=== PATIENT | female | born 1990 | race Caucasian/White ===

== ENCOUNTER 2020-06-27 13:14 | Emergency (ER) | payer BC, SELFPAY ==
[2020-06-27 13:16] VITALS: BP 125/87; PULSE 91; RESP 17; TEMP 36.7; O2SAT 100
--- NOTE | 2020-06-27 13:33 | ED.UPPEXIN ---
HPI - Extremity Injury (Upper) General Chief Complaint: Extremity Injury, Upper Stated Complaint: r back pain Time Seen by Provider: 06/27/20 13:33 History of Present Illness HPI narrative: Pain in upper back medial to right scapula. Started this afternoon when she reached accross her desk to pick something up. Radiates to the right posterior neck. Worse with arm and head movement. Related Data Allergies Allergy/AdvReac Type Severity Reaction Status Date / Time amoxicillin Allergy Severe Unknown Verified 06/27/20 13:19 Review of Systems Review of Systems: All systems reviewed & are unremarkable except as noted in HPI and below ENT: Denies dizziness Cardiovascular: Cardiovascular: Denies chest pain Respiratory: Respiratory: Denies dyspnea Gastrointestinal: Gastrointestinal: Denies abdominal pain and Denies nausea Genitourinary: Genitourinary: Reports no additional female genitourinary complaints Musculoskeletal: Musculoskeletal: Reports as per HPI Neurologic: Denies numbness and Denies weakness [facility] Family History Family History Father No family history of hypertension Mother Family history of malignant melanoma Social History Social History Smoking status: Never smoker Second hand tobacco smoke exposure: No Alcohol intake: never Gender identity (if verbalized by the patient): Female Exam Const: General: healthy appearing, no acute distress and alert Orientation/consciousness: patient oriented x3 HENMT: Head: normal to inspection Neck: Neck: normal visual inspection Chest: Chest palpation & inspection: no tenderness Resp: Effort & Inspection: normal respiratory effort Auscultation: clear to auscultation bilaterally, no rales, no rhonchi and no wheezes Cardio: Jugular venous distension: no JVD Rate: regular rate Rhythm: regular rhythm Heart sounds: no murmurs GI: Inspection: non-distended GI Palp: Yes Soft to palpation and No Tenderness to palpation present (GI) Back/Spine/Pelvis: Other: tenderness to right rhomboid Skin: General skin exam: normal color Neuro: General: patient oriented x3 and moves all extremities Speech: normal speech Extrem: General: no edema Psych: Appearance: well kempt Affect: normal affect Course Vital Signs Vital signs: Vital Signs Temperature 36.7 C 06/27/20 13:16 Pulse Rate 91 06/27/20 13:16 Respiratory Rate 17 06/27/20 13:16 Blood Pressure 125/87 06/27/20 13:16 Pulse Oximetry 100 06/27/20 13:16 Temperature 36.7 C 06/27/20 13:16 Pulse Rate 70 06/27/20 15:37 Respiratory Rate 14 06/27/20 15:37 Blood Pressure 114/77 06/27/20 15:37 Pulse Oximetry 98 06/27/20 15:37 Discharge Plan Discharge Clinical Impression: Strain of thoracic region Patient Disposition: Home, Self-Care Condition: Stable Instructions: Thoracic Back Strain (ED) Prescriptions: New cyclobenzaprine 10 mg tablet 10 mg PO TID PRN (Reason: muscle spasm) Qty: 20 RF: 0 naproxen 500 mg tablet 500 mg PO BID PRN (Reason: pain) Qty: 30 RF: 0 Follow-up/Referrals: Watt,Yulia Apple MD [Primary Care Provider] -
[2020-06-27] MEDS: CYCLOBENZAPRINE HCL 10 MG TABLET PO (14:20)
[2020-06-27] MEDS: KETOROLAC (*BKC) 60 MG/2 ML VIAL IM (14:21)
[2020-06-27 14:42] VITALS: BP 138/90; PULSE 83; RESP 14; O2SAT 99
--- NOTE | 2020-06-27 14:44 | PC.NURSE ---
ERP notified about family concern for cardiac issues. ERP stated having no concerns for patient. No orders given. ERP will speak with family.
[2020-06-27 15:37] VITALS: BP 114/77; PULSE 70; RESP 14; O2SAT 98
== END 2020-06-27 21:09 | disposition home or self-care (01) ==
PROVIDERS: Emergency Provider Emergency Medicine; PCP Family Medicine
DX: S29.012A Strain of muscle and tendon of back wall of thorax, initial encounter (principal); X50.9XXA Other and unspecified overexertion or strenuous movements or postures, initial encounter
CPT/HCPCS: 96372; 99283; A9270; J1885

== ENCOUNTER 2023-09-05 12:47 | Outpatient (CLI) | payer OTHER, SELFPAY ==
--- NOTE | ~2023-09-05 | MR_ITS ---
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 Sequences included sagittal T2-weighted FSE, sagittal T2-weighted FS FSE, sagittal T1-weight ed FSE, axial MERGE, and axial T2-weighted FSE. COMPARISON: None FINDINGS: Craniocervical association and atlantoaxial joint are intact. Mild degenerative change at t he atlantodental interval. Normal alignment. Vertebral body heights are maintained. Mild loss of disc hydration at C3-4 and C4-5. Moderate loss of disc hydration with mild loss of disc height at C5-6. S oft tissue thickening/calcification posterior to the dens. The cord signal is normal. Normal cervicom edulary junction. The following disc levels are specifically discussed: C2-C3: The disc does not extend beyond the endplate margin. There is no uncovertebral joint osteoarth ritis. There is mild left facet joint osteoarthritis. There is no neural foraminal stenosis. There is no central canal stenosis. C3-C4: The disc does not extend beyond the endplate margin. There is no uncovertebral joint osteoarth ritis. There is no facet joint osteoarthritis. There is no neural foraminal stenosis. There is no taco tral canal stenosis. C4-C5: The disc does not extend beyond the endplate margin. There is no uncovertebral joint osteoarth ritis. There is no facet joint osteoarthritis. There is no neural foraminal stenosis. There is no taco tral canal stenosis. C5-C6: The disc does not extend beyond the endplate margin. There is no uncovertebral joint osteoarth ritis. There is no facet joint osteoarthritis. There is no neural foraminal stenosis. There is no taco tral canal stenosis. C6-C7: The disc does not extend beyond the endplate margin. There is no uncovertebral joint osteoarth ritis. There is no facet joint osteoarthritis. There is no neural foraminal stenosis. There is no taco tral canal stenosis. C7-T1: The disc does not extend beyond the endplate margin. There is no uncovertebral joint osteoarth ritis. There is no facet joint osteoarthritis. There is no neural foraminal stenosis. There is no taco tral canal stenosis. IMPRESSION: Mild degenerative change at the atlantoaxial joint. Mild facet arthropathy on the left at C2-3. Multi level degenerative disc disease, very mild at C3-4 and C4-5, mild at C5-6. Reviewed, dictated and finalized at location K. IMPRESSION: Mild degenerative change at the atlantoaxial joint. Mild facet arthropathy on t he left at C2-3. Multilevel degenerative disc disease, very mild at C3-4 and C4 -5, mild at C5-6.
== END 2023-09-05 12:48 ==
LOC: GOSHIMG 12:48
PROVIDERS: PCP Family Medicine
DX: R29.898 Other symptoms and signs involving the musculoskeletal system (principal); M50.321 Other cervical disc degeneration at C4-C5 level; M50.322 Other cervical disc degeneration at C5-C6 level
CPT/HCPCS: 72141

== ENCOUNTER 2025-01-25 14:08 | Outpatient (CLI) | payer OTHER, SELFPAY ==
--- NOTE | ~2025-01-25 | US_ITS ---
EXAMINATION: US venous doppler LE RT, 01/25/2025 14:27 LEAD AUDITOR HISTORY: DVT, R lower limb edema Comparison: None Technique: Christine-scale and color Doppler images were attempted of the lower saphenofemoral junction, common femoral vein,superficial femoral vein, proximal deep femoral vein, proximal deep femoral vein, popliteal vein and posterior tibial veins. Findings: Deep Venous System:Normal flow, augmentation and compressibility. No echogenic thrombus identified. The contralateral saphenofemoral junction appears unremarkable. Superficial Venous SystemNo superficial thrombophlebitis. Soft tissues: Soft tissues are unremarkable. Impression: Negative for DVT. Reviewed, dictated and finalized at location P. AUDITOR Impression: Negative for DVT.
== END 2025-01-25 14:09 | disposition home or self-care (01) ==
PROVIDERS: PCP Nurse Practitioner Family; Visit Provider Obstetrics & Gynecology
DX: I82.891 Chronic embolism and thrombosis of other specified veins (principal); R60.0 Localized edema
CPT/HCPCS: 93971